=== PATIENT | male | born 1970 | race Caucasian/White ===

== ENCOUNTER 2017-01-23 08:00 | Outpatient (CLI) | payer BC ==
[2017-01-23 09:12] LABS: ALT (SGPT) 26 U/L (8-55); AST (SGOT) 20 U/L (5-34); Albumin 4.3 g/dL (3.5-5.0); Alkaline Phosphatase 45 U/L (40-150); Anion Gap 11 mmol/L (10-20); BUN (Urea Nitrogen) 13 mg/dL (8.9-20.6); Bilirubin, Total 0.5 mg/dL (0.2-1.2); Calc. Creatinine Clearance 0 mL/min (70-130); Calcium 9.3 mg/dL (7.8-10.44); Carbon Dioxide 30 mmol/L (22-29); Cardiac Risk 7.8 (Less than 4.5); Chloride 102 mmol/L (98-107); Cholesterol 259 mg/dL (< 200 Desired); Estimated GFR-MDRD 85; Globulin 2.8 g/dL (2.4-3.5); Glucose 97 mg/dL (70-105); HDL Cholesterol 33 mg/dL (>60 Neg Risk); LDL Cholesterol, Calculated 190 mg/dL; Potassium 4.6 mmol/L (3.5-5.1); Protein, Total 7.1 g/dL (6.0-8.3); Sodium 138 mmol/L (136-145); Triglycerides 180 mg/dL (Less than 150)
== END 2017-01-23 08:01 | disposition home or self-care (01) ==
LOC: BURLAB 08:00
PROVIDERS: ATTEND Internal Medicine Cardiovascular Disease
DX: E78.00 Pure hypercholesterolemia, unspecified (principal)
CPT/HCPCS: 80053; 80061

== ENCOUNTER 2022-04-17 10:12 | Emergency (ER) | payer BC ==
[2022-04-17] MEDS ORDERED: Ketorolac Tromethamine 30 MG/ML VIAL ONE (10:42)
[2022-04-17] MEDS ORDERED: HYDROcodone/Acetaminophen 5/325 mg Tablet ONE (10:42)
[2022-04-17 10:59] LABS: Bilirubin Negative (Negative); Blood, Urine Negative (Negative); Clarity Clear (Clear); Glucose, Urine (Dipstick) Negative (Negative); Ketone, Urine Negative (Negative); Leukocyte Negative (Negative); Nitrite Negative (Negative); Protein, Urine (Dipstick) Negative (Neg-Trace); Urobilinogen 0.2 mg/dL (Less than 2); pH, Urine 5.5 (5.0-9.0)
== END 2022-04-17 11:55 | disposition home or self-care (01) ==
LOC: BURERS 10:12
DX: K80.20 Calculus of gallbladder without cholecystitis without obstruction (principal); M54.50 Low back pain, unspecified; I25.2 Old myocardial infarction; I10 Essential (primary) hypertension; E78.5 Hyperlipidemia, unspecified; F17.210 Nicotine dependence, cigarettes, uncomplicated
CPT/HCPCS: 74176; 81003; 96372; J1885